=== PATIENT | female | born 1990 | race Caucasian/White ===

== ENCOUNTER 2017-03-01 15:06 | Emergency (ER) | payer OTHER ==
--- NOTE | 2017-03-01 16:35 | UC ---
Back Pain HPI - HPI Summary HPI Summary: 26 year old female presents with right upper back pain. - History of Current Complaint Stated Complaint: BACK PAIN Time Seen by Provider: 03/01/17 16:28 Hx Obtained From: Patient Hx Last Menstrual Period: 05/01/12 Onset/Duration: Sudden Onset Timing: Lasting Hours Severity Initially: Moderate Severity Currently: Moderate Pain Scale Used: 0-10 Numeric - 7 - Allergies/Home Medications Allergies/Adverse Reactions: Allergies Allergy/AdvReac Type Severity Reaction Status Date / Time Latex Allergy Hives Verified 03/01/17 16:28 Home Medications: Home Medications Acetaminophen [Acetaminophen Extra Stren] 1,000 mg PO PRN 03/01/17 [History] PMH/Surg Hx/FS Hx/Imm Hx Previously Healthy: Yes - Surgical History Surgical History: None - Social History Substance Use Type: None Review of Systems Constitutional: Negative Skin: Negative Eyes: Negative ENT: Negative Respiratory: Negative Cardiovascular: Negative Gastrointestinal: Negative Genitourinary: Negative Motor: Negative Neurovascular: Negative Musculoskeletal: Other: - right upper back pain Neurological: Negative Psychological: Negative All Other Systems Reviewed And Are Negative: Yes Physical Exam Triage Information Reviewed: Yes Vital Signs Reviewed: Yes Eye Exam: Normal ENT Exam: Normal Dental Exam: Normal Neck exam: Normal Neck: Positive: 1 Respiratory Exam: Normal Cardiovascular Exam: Normal Abdominal Exam: Normal Musculoskeletal: Positive: Other: - right upper back pain Neurological Exam: Normal Psychological Exam: Normal Skin Exam: Normal Back Pain Course/Dx - Differential Dx/Diagnosis Provider Diagnoses: right upper back pain/spasm Discharge - Discharge Plan Condition: Stable Disposition: HOME Prescriptions: Methocarbamol TAB* [Robaxin 500 MG TAB*] 500 mg PO TID PRN #30 tab PRN Reason: Spasms - Back Methylprednisolone [Medrol Dosepak 4 MG*] 4 mg PO .SEE YESSI INSTRUCTION #1 packet Patient Education Materials: Muscle Spasm (ED) Referrals: Yosef Wei MD [Medical Doctor] - Michele Gonzalez [Physical Therapist] - Ayesha Ambrosio MD [Medical Doctor] -
[2017-03-01 16:37] VITALS: BP 115/65
== END 2017-03-01 16:53 | disposition home or self-care (01) ==
LOC: UCCORT 15:06
DX: M54.6 Pain in thoracic spine (principal); M62.830 Muscle spasm of back
CPT/HCPCS: 99202; G0463

== ENCOUNTER 2018-07-05 07:38 | Emergency (ER) | payer OTHER ==
[2018-07-05 07:59] VITALS: BP 104/70
--- NOTE | 2018-07-05 08:20 | ED ---
Throat Pain/Nasal Congestion - HPI Summary HPI Summary: 27 yr old female with the complaint of left eye drainage. Onset this morning. She complains of irritation, and crusting to left eye upon waking up this am. She works at [employer] as a profession. - History of Current Complaint Chief Complaint: UCEye Time Seen by Provider: 07/05/18 08:01 - Allergies/Home Medications Allergies/Adverse Reactions: Allergies Allergy/AdvReac Type Severity Reaction Status Date / Time latex Allergy Hives Verified 07/05/18 07:53 Home Medications: Home Medications Escitalopram Oxalate [Lexapro] 20 mg PO DAILY 07/05/18 [History Confirmed ] Propranolol TAB* [Inderal TAB*] 10 mg PO BID PRN 07/05/18 [History Confirmed ] lamoTRIgine TAB(*) [LaMICtal TAB(*)] 50 mg PO BEDTIME 07/05/18 [History Confirmed 07/05/18] PMH/Surg Hx/FS Hx/Imm Hx - Surgical History Surgery Procedure, Year, and Place: gastric sleeve. essure. 3 knee surgeries Infectious Disease History: No Infectious Disease History: Denies: Traveled Outside the [place] in Last 30 Days - Social History Alcohol Use: Occasionally Substance Use Type: Reports: None Smoking Status (MU): Light Every Day Tobacco Smoker Type: Cigarettes Amount Used/How Often: 1/4 PPD Have You Smoked in the Last Year: Yes Review of Systems Constitutional: Negative Positive: Drainage, Erythema All Other Systems Reviewed And Are Negative: Yes Physical Exam Triage Information Reviewed: Yes Vital Signs On Initial Exam: Initial Vitals Temp Pulse Resp BP Pulse Ox 98.2 F 62 16 104/70 100 07/05/18 07:55 07/05/18 07:55 07/05/18 07:55 07/05/18 07:55 07/05/18 07:55 Vital Signs Reviewed: Yes Appearance: Positive: Well-Appearing, No Pain Distress Skin: Positive: Warm, Skin Color Reflects Adequate Perfusion Head/Face: Positive: Normal Head/Face Inspection Eyes: Positive: EOMI, Conjunctiva Inflammed, Discharge - left ENT: Positive: Pharynx normal, TMs normal. Negative: Nasal congestion Neck: Positive: Nontender Respiratory/Lung Sounds: Positive: Clear to Auscultation, Breath Sounds Present Cardiovascular: Positive: RRR. Negative: Murmur Abdomen Description: Positive: Nontender Musculoskeletal: Positive: Strength/ROM Intact Neurological: Positive: Sensory/Motor Intact, Alert, Oriented to Person Place, Time, CN Intact II-III, Normal Gait, Speech Normal Psychiatric: Positive: Normal - [place] Coma Scale Best Eye Response: 4 - Spontaneous Best Motor Response: 6 - Obeys Commands Best Verbal Response: 5 - Oriented Coma Scale Total: 15 Diagnostics - Vital Signs Vital Signs Temp Pulse Resp BP Pulse Ox 07/05/18 07:55 98.2 F 62 16 104/70 100 - Laboratory Lab Statement: Any lab studies that have been ordered have been reviewed, and results considered in the medical decision making process. EENT Course/Dx - Course Course Of Treatment: 27 yr old with conjunctivitis. Rx sulfa - Diagnoses Provider Diagnoses: Conjunctivitis Discharge - Sign-Out/Discharge Documenting (check all that apply): Patient Departure All imaging exams completed and their final reports reviewed: No Studies - Discharge Plan Condition: Good Disposition: HOME Prescriptions: Sulfacetamide 10 % OPTH.GABRIELLE* [Sulamyd 10% Opth*] 1 drop BOTH EYES Q4H #1 btl Patient Education Materials: Conjunctivitis (ED) Referrals: Mariama Severino [Primary Care Provider] - - Billing Disposition and Condition Condition: GOOD Disposition: Home
== END 2018-07-05 08:27 | disposition home or self-care (01) ==
LOC: UCCORT 07:38
DX: H10.9 Unspecified conjunctivitis (principal); F17.210 Nicotine dependence, cigarettes, uncomplicated; Z91.040 Latex allergy status
CPT/HCPCS: 99212; G0463

== ENCOUNTER 2018-09-10 14:13 | Emergency (ER) | payer OTHER ==
[2018-09-10 15:26] VITALS: BP 116/68
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
== END 2018-09-10 16:23 | disposition home or self-care (01) ==
LOC: UCCORT 14:13
DX: L55.9 Sunburn, unspecified (principal); S90.521A Blister (nonthermal), right ankle, initial encounter; X32.XXXA Exposure to sunlight, initial encounter; Z87.891 Personal history of nicotine dependence
CPT/HCPCS: 16000; 99212; G0463